=== PATIENT | male | born 1970 | race Caucasian/White ===

== ENCOUNTER 2019-01-27 17:05 | Emergency (ER) | payer OTHER, MEDICAID, SELFPAY ==
--- NOTE | 2019-01-27 17:13 | ED.UPPEXIN ---
HPI - Extremity Injury (Upper) <UMER Medina - Last Filed: 01/27/19 21:50> General Chief Complaint: Extremity Injury, Upper Stated Complaint: rt hand injury Time Seen by Provider: 01/27/19 17:10 Source: patient Mode of arrival: ambulatory Limitations: no limitations History of Present Illness HPI narrative: 49-year-old male with a history of hypertension is a nonsmoker here for complaint of pain into his right hand and wrist area over the past couple of days. He states that he hit a board a couple of times on Saturday with a fist reports pain and swelling to the hand since that timeframe. Reports increased pain with motion of the right hand. He denies any cuts or lesions to the right hand. He denies any other injuries or concerns at this timeframe. Blood pressure was elevated today in the emergency room. He states he did not take his blood pressure medication today. Related Data Allergies Allergy/AdvReac Type Severity Reaction Status Date / Time No Known Allergies Allergy Uncoded 01/27/19 17:23 Review of Systems <UMER Medina - Last Filed: 01/27/19 21:50> Constitutional Denies chills, Denies fever(s), Denies lethargy and Denies weakness Eyes Denies change in vision, Denies eye discharge, Denies irritation and Denies loss of vision ENT Ears, Nose, Mouth, and Throat: Denies change in voice, Denies neck pain, Denies sore throat and Denies throat swelling Cardiovascular Denies chest pain, Denies irregular heart rhythm, Denies lightheadedness, Denies palpitations and Denies orthopnea Respiratory Denies wheezing Gastrointestinal Gastrointestinal: Denies abdominal pain, Denies change in bowel habits, Denies diarrhea, Denies nausea and Denies vomiting Genitourinary Denies hematuria, Denies flank pain, Denies urinary incontinence and Denies urinary urgency Musculoskeletal Denies neck pain Comments: Right hand pain swelling Integumentary/Breasts Denies pruritus, Denies erythema, Denies rash and Denies wounds Neurologic Denies confusion, Denies loss of vision and Denies weakness Psychiatric Denies anxiety, Denies confusion, Denies depression, Denies homicidal ideation and Denies suicidal ideation Endocrine Denies palpitations Hematologic/Lymphatic Denies easy bruising Allergic/Immunologic Denies urticaria, Denies throat swelling and Denies wheezing PFSH <UMER Medina - Last Filed: 01/27/19 21:50> Social History Smoking Status: Never smoker Social History Smoking Status: Never smoker Exam <UMER Medina - Last Filed: 01/27/19 21:50> Initial Vital Signs Initial Vital Signs: Vital Signs Temperature 97.9 F 01/27/19 17:15 Pulse Rate 83 01/27/19 17:15 Respiratory Rate 01/27/19 17:15 Blood Pressure 186/111 H 01/27/19 17:15 Pulse Oximetry 100 01/27/19 17:15 Const General: cooperative and well developed Nutritional Appearance: well nourished Orientation: alert, awake, oriented x3 and not confused HENMT Mouth: oral mucosae normal and moist mucous membranes Eyes Conjunctivae: conjunctivae normal Sclera: sclerae normal Pupils: PERRL EOM: EOM intact bilaterally Resp Effort & Inspection: normal respiratory effort, able to speak in complete sentences, no respiratory distress and no use of accessory muscles Auscultation: clear to auscultation bilaterally, no rales, no rhonchi and no wheezes Cardio Rate: regular rate Rhythm: regular rhythm Heart Sounds: no click, no gallops, no murmurs and no rubs Pulses: normal peripheral pulses Skin General: no rashes or lesions noted, No jaundice and No petechiae Neuro General: alert, oriented x3, gait normal and no focal motor deficits Speech: speech normal Extrem Other: Swelling to right hand and slight ecchymosis. No open lesions. No snuffbox tenderness. Pain is mostly over the 2nd and 3rd metatarsals. Distal sensation is intact. Distal range of motion is intact. Distal pulses are intact. <Jaciel Jones DO - Last Filed: 01/28/19 05:00> Initial Vital Signs Initial Vital Signs: Vital Signs Temperature 97.9 F 01/27/19 17:15 Pulse Rate 83 01/27/19 17:15 Respiratory Rate 01/27/19 17:15 Blood Pressure 186/111 H 01/27/19 17:15 Pulse Oximetry 100 01/27/19 17:15 Course <UMER Medina - Last Filed: 01/27/19 21:50> Orders Ordered: ED Orders 02/26/19 17:17 XR hand RT min 3V Stat Vital Signs - 8 hr 01/27/19 17:15 01/27/19 19:10 Temperature 97.9 F Pulse Rate 83 75 Respiratory Rate 19 Blood Pressure 186/111 H Blood Pressure [Left Arm] 157/94 H Pulse Oximetry 100 <Jaciel Jones DO - Last Filed: 01/28/19 05:00> Orders Ordered: ED Orders 01/27/19 17:17 XR hand RT min 3V Stat Vital Signs - 8 hr 01/27/19 17:15 01/27/19 19:10 Temperature 97.9 F Pulse Rate 83 75 Respiratory Rate 19 Blood Pressure 186/111 H Blood Pressure [Left Arm] 157/94 H Pulse Oximetry 100 MDM - Extremity Injury (Upper) <UMER Medina - Last Filed: 01/27/19 21:50> Imaging Data Right hand : Radiologist's impression: [address] [address] XRay Report Signed Patient: Enrique Marrufo [facility]#: [id number] : 1970Acct:[id number] Age/Sex: 49 / MDate of Service: 01/27/19 Loc: ED Accession Number: [id number] Procedure: XR hand RT min 3V Ordering Provider: Richi Hernandez PROCEDURE: XR HAND RT MIN 3V INDICATIONS: Pain into right hand and right wrist after punching board TECHNIQUE: 3 views of the hand(s) acquired. COMPARISON: None. FINDINGS: Bones: Mild fifth metacarpal mid diaphyseal angulation, chronicity uncertain. No other displaced acute fractures visible. Subcortical cystic change of the fourth metacarpal head. Carpal bones are normally aligned. No suspicious bony lesions. Soft tissues: No suspicious soft tissue calcifications. Dystrophic calcifications project in the soft tissue along the palmar aspect of the third metacarpal head. No soft tissue gas visible. IMPRESSION: 1. No definite acute fracture. 2. Deformity of prior fifth metacarpal fracture. Dictated by: Jannette Garcia M.D. on 01/27/2019 at 18:17 Approved by: Jannette Garcia M.D. on 01/27/2019 at 18:19 [facility] Narrative Medical decision making narrative: X-ray of the right hand was obtained was negative for any acute fractures or findings. Signs and symptoms presents as contusion to the right hand. [id number]-qhqmnut ibuprofen as needed for any discomfort. Ice and elevation help with any swelling. Follow up with primary care provider next week. For any worsening symptoms return to the emergency room. He is placed in a premade splint for comfort and support. Blood pressure normalized while in the emergency room he is instructed to take his blood pressure medications as prescribed Discharge Plan Departure Patient Disposition: Home Clinical Impression: Contusion of right hand Qualifiers: Encounter type: initial encounter Qualified Code(s): S60.221A - Contusion of right hand, initial encounter Discharge Date/Time: 01/27/19 19:16 Interventions: ED Discharge Assessment Last Done: 01/27/19 19:15 Instructions: DI for Hand Injury Activity Restrictions/Additional Instructions: X-ray the right hand was obtained was negative for any fractures. Signs and symptoms presents as contusion of the right hand. Use [id number] ibuprofen as needed for any discomfort. Rest area. Follow up with primary care provider next week. Use ice and elevation and to help with any swelling. For any worsening symptoms return to the emergency room. Blood pressure was elevated today in the emergency room. Ensure you are taking her blood pressure medications as prescribed per Referrals: [facility] [Provider Group] <Jaciel Jones DO - Last Filed: 01/28/19 05:00> [facility]ashish Attestation: I was immediately available in the department for consultation. Documentation has been reviewed. I agree with assessment and plan.
[2019-01-27 17:15] VITALS: BP 186/111; PULSE 83; RESP 19; TEMP 36.6; O2SAT 100
--- NOTE | 2019-01-27 17:17 | DI.RAD.S_ITS ---
PROCEDURE: XR HAND RT MIN 3V INDICATIONS: Pain into right hand and right wrist after punching board TECHNIQUE: 3 views of the hand(s) acquired. COMPARISON: None. FINDINGS: Bones: Mild fifth metacarpal mid diaphyseal angulation, chronicity uncertain. No other displaced acute fractures visible. Subcortical cystic change of the fourth metacarpal head. Carpal bones are normally aligned. No suspicious bony lesions. Soft tissues: No suspicious soft tissue calcifications. Dystrophic calcifications project in the soft tissue along the palmar aspect of the third metacarpal head. No soft tissue gas visible. IMPRESSION: 1. No definite acute fracture. 2. Deformity of prior fifth metacarpal fracture. Dictated by: Jannette Garcia M.D. on 01/27/2019 at 18:17 Approved by: Jannette Garcia M.D. on 01/27/2019 at 18:19
--- NOTE | 2019-01-27 18:57 | ED_ITS ---
HPI - Extremity Injury (Upper) <UMER Medina - Last Filed: 01/27/19 21:50> General Chief Complaint: Extremity Injury, Upper Stated Complaint: rt hand injury Time Seen by Provider: 01/27/19 17:10 Source: patient Mode of arrival: ambulatory Limitations: no limitations History of Present Illness HPI narrative: 49-year-old male with a history of hypertension is a nonsmoker here for complaint of pain into his right hand and wrist area over the past couple of days. He states that he hit a board a couple of times on Saturday with a fist reports pain and swelling to the hand since that timeframe. Reports increased pain with motion of the right hand. He denies any cuts or lesions to the right hand. He denies any other injuries or concerns at this timeframe. Blood pressure was elevated today in the emergency room. He states he did not take his blood pressure medication today. Related Data Allergies Allergy/AdvReac Type Severity Reaction Status Date / Time No Known Allergies Allergy Uncoded 01/27/19 17:23 Review of Systems <UMER Medina - Last Filed: 01/27/19 21:50> Constitutional Denies chills, Denies fever(s), Denies lethargy and Denies weakness Eyes Denies change in vision, Denies eye discharge, Denies irritation and Denies loss of vision ENT Ears, Nose, Mouth, and Throat: Denies change in voice, Denies neck pain, Denies sore throat and Denies throat swelling Cardiovascular Denies chest pain, Denies irregular heart rhythm, Denies lightheadedness, Denies palpitations and Denies orthopnea Respiratory Denies wheezing Gastrointestinal Gastrointestinal: Denies abdominal pain, Denies change in bowel habits, Denies diarrhea, Denies nausea and Denies vomiting Genitourinary Denies hematuria, Denies flank pain, Denies urinary incontinence and Denies urinary urgency Musculoskeletal Denies neck pain Comments: Right hand pain swelling Integumentary/Breasts Denies pruritus, Denies erythema, Denies rash and Denies wounds Neurologic Denies confusion, Denies loss of vision and Denies weakness Psychiatric Denies anxiety, Denies confusion, Denies depression, Denies homicidal ideation and Denies suicidal ideation Endocrine Denies palpitations Hematologic/Lymphatic Denies easy bruising Allergic/Immunologic Denies urticaria, Denies throat swelling and Denies wheezing PFSH <UMER Medina - Last Filed: 01/27/19 21:50> Social History Smoking Status: Never smoker Social History Smoking Status: Never smoker Exam <UMER Medina - Last Filed: 01/27/19 21:50> Initial Vital Signs Initial Vital Signs: Vital Signs Temperature 97.9 F 01/27/19 17:15 Pulse Rate 83 01/27/19 17:15 Respiratory Rate 01/27/19 17:15 Blood Pressure 186/111 H 01/27/19 17:15 Pulse Oximetry 100 01/27/19 17:15 Const General: cooperative and well developed Nutritional Appearance: well nourished Orientation: alert, awake, oriented x3 and not confused HENMT Mouth: oral mucosae normal and moist mucous membranes Eyes Conjunctivae: conjunctivae normal Sclera: sclerae normal Pupils: PERRL EOM: EOM intact bilaterally Resp Effort & Inspection: normal respiratory effort, able to speak in complete sentences, no respiratory distress and no use of accessory muscles Auscultation: clear to auscultation bilaterally, no rales, no rhonchi and no wheezes Cardio Rate: regular rate Rhythm: regular rhythm Heart Sounds: no click, no gallops, no murmurs and no rubs Pulses: normal peripheral pulses Skin General: no rashes or lesions noted, No jaundice and No petechiae Neuro General: alert, oriented x3, gait normal and no focal motor deficits Speech: speech normal Extrem Other: Swelling to right hand and slight ecchymosis. No open lesions. No snuffbox tenderness. Pain is mostly over the 2nd and 3rd metatarsals. Distal sensation is intact. Distal range of motion is intact. Distal pulses are intact. <Jaciel Jones DO - Last Filed: 01/28/19 05:00> Initial Vital Signs Initial Vital Signs: Vital Signs Temperature 97.9 F 01/27/19 17:15 Pulse Rate 83 01/27/19 17:15 Respiratory Rate 01/27/19 17:15 Blood Pressure 186/111 H 01/27/19 17:15 Pulse Oximetry 100 01/27/19 17:15 Course <UMER Medina - Last Filed: 01/27/19 21:50> Orders Ordered: ED Orders 02/26/19 17:17 XR hand RT min 3V Stat Vital Signs - 8 hr 01/27/19 17:15 01/27/19 19:10 Temperature 97.9 F Pulse Rate 83 75 Respiratory Rate 19 Blood Pressure 186/111 H Blood Pressure [Left Arm] 157/94 H Pulse Oximetry 100 <Jaciel Jones DO - Last Filed: 01/28/19 05:00> Orders Ordered: ED Orders 01/27/19 17:17 XR hand RT min 3V Stat Vital Signs - 8 hr 01/27/19 17:15 01/27/19 19:10 Temperature 97.9 F Pulse Rate 83 75 Respiratory Rate 19 Blood Pressure 186/111 H Blood Pressure [Left Arm] 157/94 H Pulse Oximetry 100 MDM - Extremity Injury (Upper) <UMER Medina - Last Filed: 01/27/19 21:50> Imaging Data Right hand : Radiologist's impression: [address] [address] XRay Report Signed Patient: Enrique Marrufo [facility]#: [id number] : 1970Acct:[id number] Age/Sex: 49 / MDate of Service: 01/27/19 Loc: ED Accession Number: [id number] Procedure: XR hand RT min 3V Ordering Provider: Richi Hernandez PROCEDURE: XR HAND RT MIN 3V INDICATIONS: Pain into right hand and right wrist after punching board TECHNIQUE: 3 views of the hand(s) acquired. COMPARISON: None. FINDINGS: Bones: Mild fifth metacarpal mid diaphyseal angulation, chronicity uncertain. No other displaced acute fractures visible. Subcortical cystic change of the fourth metacarpal head. Carpal bones are normally aligned. No suspicious bony lesions. Soft tissues: No suspicious soft tissue calcifications. Dystrophic calcifications project in the soft tissue along the palmar aspect of the third metacarpal head. No soft tissue gas visible. IMPRESSION: 1. No definite acute fracture. 2. Deformity of prior fifth metacarpal fracture. Dictated by: Jannette Garcia M.D. on 01/27/2019 at 18:17 Approved by: Jannette Garcia M.D. on 01/27/2019 at 18:19 [facility] Narrative Medical decision making narrative: X-ray of the right hand was obtained was negative for any acute fractures or findings. Signs and symptoms presents as contusion to the right hand. Idih-pwr-qiqushz ibuprofen as needed for any discomfort. Ice and elevation help with any swelling. Follow up with primary care provider next week. For any worsening symptoms return to the emergency room. He is placed in a premade splint for comfort and support. Blood pressure normalized while in the emergency room he is instructed to take his blood pressure medications as prescribed Discharge Plan Departure Patient Disposition: Home Clinical Impression: Contusion of right hand Qualifiers: Encounter type: initial encounter Qualified Code(s): S60.221A - Contusion of r ight hand, initial encounter Discharge Date/Time: 01/27/19 19:16 Interventions: ED Discharge Assessment Last Done: 01/27/19 19:15 Instructions: DI for Hand Injury Activity Restrictions/Additional Instructions: X-ray the right hand was obtained was negative for any fractures. Signs and symptoms presents as contusion of the right hand. Use [id number] ibuprofen as needed for any discomfort. Rest area. Follow up with primary care provider next week. Use ice and elevation and to help with any swelling. For any worsening symptoms return to the emergency room. Blood pressure was elevated today in the emergency room. Ensure you are taking her blood pressure medications as prescribed per Referrals: [facility] [Provider Group] <Jaciel Jones DO - Last Filed: 01/28/19 05:00> [facility] ED Attending Aashish Attestation: I was immediately available in the department for consultation. Documentation has been reviewed. I agree with assessment and plan.
[2019-01-27 19:10] VITALS: BP 157/94; PULSE 75
== END 2019-01-27 19:16 | disposition home or self-care (01) ==
PROVIDERS: Emergency Provider Nurse Practitioner Family
DX: S60.221A Contusion of right hand, initial encounter (principal); W22.8XXA Striking against or struck by other objects, initial encounter
CPT/HCPCS: 29260; 73130; 99283